=== PATIENT | female | born 1985 | race American Indian/Alaskan Native ===

== ENCOUNTER 2018-11-10 11:51 | Outpatient (CLI) | payer MEDICAID ==
[2018-11-10 12:30] VITALS: BP 121/79
--- NOTE | 2018-11-10 14:49 | Ultrasound Report ---
ULTRASOUND BIOPHYSICAL PROFILE: History: Post dates Technique: Transabdominal ultrasound with Doppler interrogation. 2 - breathing movements 2 - movements 2 - posture and tone 2 - Qualitative amniotic fluid volume 8 - TOTAL SCORE OF POSSIBLE 8 Heart Rate (bpm) 137
--- NOTE | 2018-11-10 14:49 | Ultrasound Report ---
ULTRASOUND OB LIMITED History: Postdates Technique: Transabdominal ultrasound with Doppler interrogation. Gestation: Single Position: Cephalic Amniotic Fluid: Normal ARABELLA = 9.6 cm Heart Rate: 155 BPM
== END 2018-11-10 14:35 | disposition home or self-care (01) ==
LOC: TRG 11:51
PROVIDERS: ATTEND Obstetrics & Gynecology
DX: O47.1 False labor at or after 37 completed weeks of gestation (principal); Z3A.40 40 weeks gestation of pregnancy
CPT/HCPCS: 59025; 76815; 76819